=== PATIENT | male | born 1990 | race American Indian/Alaskan Native ===

== ENCOUNTER 2020-07-16 21:11 | Inpatient (IN) | payer OTHER ==
[~2020-07-16] VITALS: Ht 182.9 cm; Wt 102.0 kg
[2020-07-16] MEDS ORDERED: ISOVUE-370 76% 100ML VIAL As Ordered ONE (21:33)
[2020-07-16] MEDS ORDERED: MULTIVITAMIN -ADULT INJECTION 10 ML, THIAMINE INJection 100 MG, FOLIC ACID 1 MG in NS 1... IV ONE (21:45)
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
[2020-07-16 22:00] LABS: HEMATOCRIT 47.8 % (42.0-52.0); HEMOGLOBIN 16.4 g/dl (13.5-17.5); MEAN CORPUSCULAR HEMOGLOBIN 30.9 pg (27.0-33.0); MEAN CORPUSCULAR HGB CONC 34.3 g/dl (32.0-36.5); PLATELET COUNT, AUTOMATED 316 10^3/uL (150-450); RED BLOOD COUNT 5.31 10^6/uL (4.30-6.10); WHITE BLOOD COUNT 9.4 10^3/uL (4.0-10.0)
[2020-07-16] MEDS ORDERED: ACETAMINOPHEN TAB 650MG DOSE (2X325MG) PO ONE (22:10)
[2020-07-16] MEDS ORDERED: [UNRECOGNIZED DRUG - REMARK] (22:20)
[2020-07-16 22:37] LABS: AMPHETAMINES LEVEL URINE NEGATIVE (NEGATIVE); BARBITURATES URINE NEGATIVE (NEGATIVE); BENZODIAZEPINES URINE NEGATIVE (NEGATIVE); CANNABINOIDS URINE NEGATIVE (NEGATIVE); COCAINE METABOLITE URINE NEGATIVE (NEGATIVE); METHADONE URINE NEGATIVE (NEGATIVE); OPIATES URINE NEGATIVE (NEGATIVE); PHENCYCLIDINE URINE NEGATIVE (NEGATIVE)
[2020-07-16 22:39] LABS: ACETAMINOPHEN LEVEL < 2.0 UG/ML (10.0-30.0); ALBUMIN 4.6 GM/DL (3.2-5.2); ALT/SGPT 60 U/L (12-78); BILIRUBIN,DIRECT 0.1 MG/DL (0.0-0.2); BILIRUBIN,TOTAL 0.4 MG/DL (0.2-1.0); BLOOD UREA NITROGEN 10 MG/DL (7-18); CALCIUM LEVEL 9.1 MG/DL (8.5-10.1); CARBON DIOXIDE LEVEL 24 MEQ/L (21-32); CHLORIDE LEVEL 110 MEQ/L (98-107); CREATININE FOR GFR 1.09 MG/DL (0.70-1.30); ETHYL ALCOHOL (ETHANOL) 0.209 % (0.000-0.010); GLOMERULAR FILTRATION RATE > 60.0 (>60); GLUCOSE, FASTING 97 MG/DL (70-100); SALICYLATE LEVEL < 1.7 MG/DL (5.0-30.0); SODIUM LEVEL 142 MEQ/L (136-145); THYROID STIMULATING HORMONE 0.526 uIU/ML (0.358-3.740); TOTAL PROTEIN 8.4 GM/DL (6.4-8.2)
[2020-07-17 11:36] LABS: RSV AMPLIFICATION NEGATIVE (NEGATIVE)
[2020-07-17] MEDS ORDERED: MOM 30ML SUSPENSION UDC PO PRN (12:05)
[2020-07-17] MEDS ORDERED: ACETAMINOPHEN TAB 650MG DOSE (2X325MG) PO PRN (12:05)
[2020-07-17] MEDS ORDERED: traZODone 50 MG TAB PO PRN (12:05)
[2020-07-17] MEDS ORDERED: MAALOX 30 ML SUSP *UDC PO PRN (12:05)
[2020-07-17 15:58] VITALS: BP 143/72
[2020-07-17] MEDS: NICOTINE POLACRILEX 2 MG GUM PO PRN (18:14)
[2020-07-18 06:05] VITALS: BP 145/59
[2020-07-18] MEDS: NICOTINE POLACRILEX 2 MG GUM PO PRN ×3 (08:07→16:40)
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
[2020-07-18 16:51] VITALS: BP 140/72
[2020-07-19 06:36] VITALS: BP 149/69
[2020-07-19] MEDS: NICOTINE POLACRILEX 2 MG GUM PO PRN ×4 (08:08→17:46)
--- NOTE | 2020-07-19 15:28 | MHIPNPDOC ---
[facility] Progress Note Progress Note DATE OF SERVICE: 07/19/20 HISTORY: 30-year-old male who while intoxicated. Harm himself. VITAL SIGNS: See below. NEW TEST RESULTS:. None. CURRENT MEDICATIONS: See below. MENTAL STATUS EXAMINATION: Patient is a 30-year old male, who is while intoxicated, hung himself. Patient was confronted on his larger alcohol use than he admitted to and was highly recommended to go to alcohol treatment. Speech: Is. No gross disturbance Language skills are. No disturbance. Thought processes including: no disturbance. Thought content: Admits to increased alcohol use than he previously stated. Abstract reasoning, and computation: Abstract and computation are present. Description of associations:. No loose association. Description of abnormal or psychotic thoughts:. No psychotic thoughts. Judgment: Poor. Insight: Good. Orientation: 3. Recent and remote memory: Intact.. Attention span and concentration: Intact Language: No gross disturbance. Fund of knowledge: Reasonable. Mood: Euthymic. Affect:, Congruent. DIAGNOSES: 1. Alcohol abuse. 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 3. None. ASSESSMENT: As above MANAGEMENT PLAN:, We'll discharge with alcohol treatment, outpatient. TIME SPENT: 35 minutes. Vital Signs Vital Signs Date Time Temp Pulse Resp B/P (MAP) Pulse Ox O2 Delivery O2 Flow Rate FiO2 07/19/20 06:36 98.0 58 16 149/69 (95) 97 Room Air Current Medications Current Medications Medications (Trade) Dose Ordered Sig/Osman Route PRN Reason Start Time Stop Time Status Last Admin Dose Admin Acetaminophen (Tylenol Tab) 650 mg Q6HP PRN PO HEADACHE or DISCOMFORT 07/17/20 12:05 Al Hydrox/Mg Hydrox/Simethicone (Mylanta) 30 ml Q4HP PRN PO HEARTBURN/INDIGESTION 07/17/20 12:05 Home Med (Med Rec Complete!) ASDIRECTED XX 07/16/20 23:55 07/16/20 23:54 DC Magnesium Hydroxide (Milk Of Magnesia) 30 ml DAILYPRN PRN PO CONSTIPATION 07/17/20 12:05 Nicotine (Nicorette) 2 mg Q2HP PRN PO SMOKING CESSATION 07/17/20 16:55 07/19/20 14:06 Trazodone HCl (Desyrel) 50 mg QHSP PRN PO INSOMNIA 07/17/20 12:05 Allergies Coded Allergies: No Known Allergies (Unverified , 07/16/20) JOSIAH GRANT MD Jul 19, 2020 15:28
[2020-07-19 16:32] VITALS: BP 124/57
[2020-07-20 06:24] VITALS: BP 146/68
[2020-07-20] MEDS: NICOTINE POLACRILEX 2 MG GUM PO PRN ×5 (08:40→23:05)
--- NOTE | 2020-07-20 16:54 | MHIPNPDOC ---
[facility] Progress Note Progress Note DATE OF SERVICE: 07/20/20 HISTORY: 30-year-old male with alcoholism, attempted to hang himself. VITAL SIGNS: See below. NEW TEST RESULTS: None. CURRENT MEDICATIONS: See below. MENTAL STATUS EXAMINATION: Patient is a 30-year old male, who is, clear and willing to get alcohol treatment. Speech: Is. No gross disturbance. Language skills no gross disturbance. Thought processes including: As above. Thought content: No abnormality. Abstract reasoning, and computation: able to abstract. Description of associations:. No loose association. Description of abnormal or psychotic thoughts: No psychotic thought. Judgment: Good. Insight:. Good. Orientation: 3. Recent and remote memory: Intact. Attention span and concentration:. Good. Language: No disturbance. Fund of knowledge: Full. Mood: Good. Affect:, Congruent. DIAGNOSES: 1. Situational depression with alcohol abuse. 2. None. 3. ASSESSMENT: As above MANAGEMENT PLAN:. Discharge with alcohol treatment. TIME SPENT:, 35 minutes. Vital Signs Vital Signs Date Time Temp Pulse Resp B/P (MAP) Pulse Ox O2 Delivery O2 Flow Rate FiO2 07/20/20 06:24 97.9 55 14 146/68 (94) 98 Room Air Current Medications Current Medications Medications (Trade) Dose Ordered Sig/Osman Route PRN Reason Start Time Stop Time Status Last Admin Dose Admin Acetaminophen (Tylenol Tab) 650 mg Q6HP PRN PO HEADACHE or DISCOMFORT 07/17/20 12:05 Al Hydrox/Mg Hydrox/Simethicone (Mylanta) 30 ml Q4HP PRN PO HEARTBURN/INDIGESTION 07/17/20 12:05 Home Med (Med Rec Complete!) ASDIRECTED XX 07/16/20 23:55 07/16/20 23:54 DC Magnesium Hydroxide (Milk Of Magnesia) 30 ml DAILYPRN PRN PO CONSTIPATION 07/17/20 12:05 Nicotine (Nicorette) 2 mg Q2HP PRN PO SMOKING CESSATION 07/17/20 16:55 07/20/20 16:20 Trazodone HCl (Desyrel) 50 mg QHSP PRN PO INSOMNIA 07/17/20 12:05 Allergies Coded Allergies: No Known Allergies (Unverified , 07/16/20) JOSIAH GRANT MD Jul 20, 2020 16:54
[2020-07-20 17:25] VITALS: BP 136/67
[2020-07-21 06:05] VITALS: BP 150/69
[2020-07-21] MEDS: NICOTINE POLACRILEX 2 MG GUM PO PRN (08:38)
--- NOTE | 2020-08-01 09:55 | MHDSPDOC ---
[facility] Discharge Summary Discharge Summary DATE OF ADMISSION: Jul 17, 2020 at 12:02 DATE OF DISCHARGE: Jul 21, 2020 at 09:42 DISCHARGE DIAGNOSES: 1., Alcohol abuse and intoxication. 2.. Situational depression. REASON FOR ADMISSION:. 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 None TREATMENT AND PROGRESS ON THE UNIT : Patient became sober. Mood improved. Denied suicidal ideation, was confronted on alcohol use and how he had minimized. HOSPITAL COURSE: Unremarkable DISCHARGE ASSESSMENT: Alcohol abuse and dependence MENTAL STATUS EXAMINATION ON DISCHARGE: Patient is a, 30-year old male, who is in improved mood and has agreed to continued alcohol treatment. Speech is unremarkable. Language skills are gross disturbance. Thought processes including:. No disturbance. Thought content:. No psychotic thought. No further suicidal ideation. Abstract reasoning, and computation: Ability to abstract and compute present. Description of associations:. No loose association. Description of abnormal or psychotic thoughts: No abnormal or psychotic thoughts. Judgment: Improved. Insight:. Adequate. Orientation to 3. Recent and remote memory: Intact. Attention span and concentration: Intact. Language:. No gross disturbance. Fund of knowledge: Reasonable. Mood: Good. Affect:, Congruent. MEDICATIONS ON DISCHARGE: -None - -. PLAN/FOLLOWUP ARRANGEMENTS: Follow-up at [facility] and substance treatment. Elian Prather. The amount of time spent in the coordination of care for this patient was approximately 30 minutes. ETOH/Disorder Med Rx ETOH/DRUG DISORDER RX: N/A Medications No Active Prescriptions or Reported Meds Allergies Coded Allergies: No Known Allergies (Unverified , 07/16/20) JOSIAH GRANT MD Aug 01, 2020 09:55
== END 2020-07-21 09:42 | disposition home or self-care (01) | DRG 881 ==
LOC: M ED 21:11 → M ED INP 07-17 12:02 → M PSY 07-17 15:53
PROVIDERS: ADMIT Psychiatry & Neurology Child & Adolescent Psychiatry; ATTEND Psychiatry & Neurology Child & Adolescent Psychiatry
DX: F32.9 Major depressive disorder, single episode, unspecified (principal); F10.129 Alcohol abuse with intoxication, unspecified